=== PATIENT | female | born 1945 | race Caucasian/White ===

== ENCOUNTER 2018-02-10 18:12 | Emergency (ER) | payer MEDICARE, BC ==
[2018-02-10] MEDS ORDERED: Sodium Chloride 0.9% 10 ML Syringe FLUSH PRN (19:26)
[2018-02-10] MEDS ORDERED: methylPREDNISolone Sodium Succinate 125 MG/2 ML SDV IVPUSH ONE (20:05)
[2018-02-10 20:11] LABS: ANION GAP 11.7; CHLORIDE,CL 106 mmol/L (101-111); SODIUM,NA 139 mmol/L (135-145)
[2018-02-10 20:15] VITALS: BP 163/100
[2018-02-10] MEDS ORDERED: Doxycycline 100 MG Cap PO ONE (20:31)
--- NOTE | 2018-02-10 20:35 | EDM.PDOC ---
ED HPI GENERAL MEDICAL PROBLEM - General Chief Complaint: Respiratory Problem Stated Complaint: [id number] CHRONIC COUGHING CANT CATCH BREATH Time Seen by Provider: 02/10/18 19:17 Source of Information: Reports: Patient, Family History Limitations: Reports: No Limitations - History of Present Illness INITIAL COMMENTS - FREE TEXT/NARRATIVE: Pt to ER with c/o wheezing and coughing that began 3-4 days ago, progressively getting worse. States after she uses albuterol inhaler for the wheezing she has a coughing attack for 20-30 min. Unable to perform as much activity as normal. Patient states history of emphysema and COPD. States she is on O2 at home at 2L at all times. She also states she was on a course of steroids the end of December that helped her very much. Onset: Gradual - Related Data Allergies Allergy/AdvReac Type Severity Reaction Status Date / Time azithromycin Allergy Intermediate Hives Verified 12/07/17 07:15 varenicline tartrate Allergy Mild Nausea Verified 12/07/17 07:15 [From Chantix] budesonide [From Symbicort] Allergy Unknown Nausea Verified 12/07/17 07:15 cephalexin Allergy Unknown Other Verified 12/07/17 07:15 formoterol fumarate Allergy Unknown Nausea Verified 12/07/17 07:15 [From Symbicort] hydrochlorothiazide Allergy Unknown Other Verified 12/07/17 07:15 varenicline Allergy Unknown Other Verified 12/07/17 07:15 atorvastatin calcium Allergy Nausea Verified 12/07/17 07:15 [From Lipitor] codeine Allergy Dizziness Verified 12/07/17 07:15 levofloxacin [From Levaquin] Allergy Nausea Verified 12/07/17 07:15 nifedipine Allergy Dizziness Verified 12/07/17 07:15 Home Meds: Home Meds Fenofibrate [Fenoglide] 135 mg PO DAILY 08/01/14 [History] traZODone 50 mg PO BEDTIME 08/01/14 [History] Acetaminophen [Tylenol Extra Strength] 500 mg PO Q4HR PRN 11/13/15 [History] Benzonatate [Tessalon Perles] 100 mg PO Q6HR PRN 11/13/15 [History] Vit A/Vit C/Vit E/Zinc/Copper [Preservision] 1 each PO BID 11/13/15 [History] Albuterol [Proventil Neb Soln] 1 inh NEB Q4H PRN 12/06/17 [History] Aspirin [Ecotrin] 81 mg PO DAILY 12/06/17 [History] Latanoprost 1 drop EYEBOTH BEDTIME 12/06/17 [History] Metoprolol Succinate [Toprol XL 100mg] 100 mg PO DAILY 12/06/17 [History] Valsartan 320 mg PO DAILY 12/06/17 [History] Pantoprazole Sodium [Protonix] 40 mg PO DAILY 12/07/17 [History] Metoprolol Succinate 50 mg PO BEDTIME 02/10/18 [History] Umeclidinium Brm/Vilanterol Tr [Anoro Ellipta 62.5-25 MCG] 1 puff INH DAILY 12/24 [History] Past Medical History HEENT History: Reports: Impaired Vision Cardiovascular History: Reports: High Cholesterol, Hypertension Respiratory History: Reports: COPD Gastrointestinal History: Reports: None Genitourinary History: Reports: None AREA MANAGER History: Reports: Musculoskeletal History: Reports: Arthritis Neurological History: Reports: Migraines - Past Surgical History HEENT Surgical History: Reports: Tonsillectomy GI Surgical History: Reports: Cholecystectomy, Hernia Repair/Other Female Surgical History: Reports: Breast Biopsy Musculoskeletal Surgical History: Reports: Other (See Below) Other Musculoskeletal Surgeries/Procedures:: toe surgery Social & Family History - Family History Family Medical History: Noncontributory Cardiac: Reports: Heart Failure Respiratory: Reports: COPD Other Oncologic Family History: mother from lung cancer - Tobacco Use Smoking Status *Q: Former Smoker Years of Tobacco use: 53 Packs/Tins Daily: 0.7 Used Tobacco, but Quit: Yes Month/Year Tobacco Last Used: 11/2015 - Caffeine Use Caffeine Use: Reports: Soda, Tea - Recreational Drug Use Recreational Drug Use: No - Living Situation & Occupation Living situation: Reports: , with Spouse Occupation: Retired ED ROS GENERAL - Review of Systems Review Of Systems: ROS reveals no pertinent complaints other than HPI. ED EXAM, GENERAL - Physical Exam Exam: See Below Exam Limited By: No Limitations General Appearance: Alert, WD/WN, No Apparent Distress Eye Exam: Bilateral Eye: EOMI, Normal Inspection Ears: Normal External Exam, Hearing Grossly Normal Nose: Normal Inspection Throat/Mouth: Normal Inspection, Normal Voice, No Airway Compromise Head: Atraumatic, Normocephalic Neck: Normal Inspection, Supple, Non-Tender, Full Range of Motion Respiratory/Chest: No Respiratory Distress, No Accessory Muscle Use, Chest Non- Tender, Decreased Breath Sounds, Crackles (Bases bilaterally) Cardiovascular: Normal Peripheral Pulses, Regular Rate, Rhythm, No Edema, No Gallop, No JVD, No Murmur, No Rub Peripheral Pulses: 1+: Dorsalis Pedis (L), Dorsalis Pedis (R), 2+: Radial (L), Radial (R) GI/Abdominal: Normal Bowel Sounds, Soft, Non-Tender (Female) Exam: Deferred Rectal (Female) Exam: Deferred Back Exam: Normal Inspection, Full Range of Motion Extremities: Normal Inspection, Normal Range of Motion, Non-Tender, No Pedal Edema, Normal Capillary Refill Neurological: Alert, Oriented, CN II-XII Intact, Normal Cognition, Normal Gait, Normal Reflexes, No Motor/Sensory Deficits Psychiatric: Normal Affect, Normal Mood Skin Exam: Warm, Dry, Intact, Normal Color, No Rash Lymphatic: No Adenopathy Course - Vital Signs Last Recorded V/S: Last Vital Signs Temp 98.6 F 02/10/18 20:15 Pulse 71 02/10/18 20:15 Resp 24 H 02/10/18 20:15 BP 163/100 H 02/10/18 20:15 Pulse Ox 94 L 02/10/18 18:28 - Orders/Labs/Meds Orders: Active Orders 24 hr Category Date Time Status Peripheral IV Care [RC] . DIRECTED Care 02/10/18 19:27 Active Sodium Chloride 0.9% [Saline Flush] Med 02/10/18 19:26 Active 10 ml FLUSH ASDIRECTED PRN Peripheral IV Insertion Adult [OM.PC] Stat Oth 02/10/18 19:26 Ordered Medication Orders Sodium Chloride (Saline Flush) 10 ml FLUSH ASDIRECTED PRN PRN Reason: Keep Vein Open Last Admin: 02/10/18 19:35 Dose: 10 ml Labs: Laboratory Tests 02/10/18 02/10/18 Range/Units 19:37 19:37 WBC 7.9 (5.0-10.0) 10^3/uL RBC 4.69 (4.2-5.4) 10^6/uL Hgb 13.5 (12.0-16.0) g/dL Hct 42.2 (37.0-47.0) % MCV 90.0 (80-100) fL MCH 28.8 (27.0-34.0) pg MCHC 32.0 L (33.0-35.0) g/dL Plt Count 336 D (150-450) 10^3/uL Neut % (Auto) 56.9 (42.2-75.2) % Lymph % (Auto) 21.5 (20.5-50.1) % Warren % (Auto) 13.2 H (2-8) % Eos % (Auto) 7.1 H (1.0-3.0) % Baso % (Auto) 1.3 H (0.0-1.0) % Sodium 139 (135-145) mmol/L Potassium 3.7 (3.6-5.0) mmol/L Chloride 106 (101-111) mmol/L Carbon Dioxide 25.0 (21.0-31.0) mmol/L Anion Gap 11.7 BUN 16 (7-18) mg/dL Creatinine 1.0 (0.6-1.3) mg/dL Est Cr Clr Drug Dosing 39.04 mL/min Estimated GFR (MDRD) 54 BUN/Creatinine Ratio 16.00 Glucose TNP Calcium 9.6 (8.4-10.2) mg/dl Total Bilirubin 0.3 (0.2-1.0) mg/dL AST 27 (10-42) IU/L ALT 16 (10-60) IU/L Alkaline Phosphatase 41 L (42-121) IU/L Total Protein 7.0 (6.7-8.2) g/dl Albumin 4.0 (3.2-5.5) g/dl Globulin 3.0 Albumin/Globulin Ratio 1.33 Meds: Medications Generic Name Dose Route Start Last Admin Trade Name Freq PRN Reason Stop Dose Admin Sodium Chloride 10 ml 02/10/18 19:26 02/10/18 19:35 Saline Flush FLUSH 10 ml ASDIRECTED PRN Administration Keep Vein Open Discontinued Medications Generic Name Dose Route Start Last Admin Trade Name Freq PRN Reason Stop Dose Admin Doxycycline Hyclate 100 mg 02/10/18 20:31 02/10/18 20:42 Vibramycin PO 02/10/18 20:32 100 mg ONETIME ONE Administration Methylprednisolone Sodium Succinate 125 mg 02/10/18 20:05 02/10/18 20:16 Solu-Medrol IVPUSH 02/10/18 20:06 125 mg ONETIME ONE Administration Departure - Departure Time of Disposition: 20:30 Disposition: Home, Self-Care 01 Condition: Fair Clinical Impression: COPD with exacerbation - Discharge Information Instructions: Chronic Obstructive Pulmonary Disease Exacerbation, [id number] , Acute Bronchitis, Adult, [id number] Referrals: Michael Stacy MD [Primary Care Provider] - Forms: ED Department Discharge Additional Instructions: RX: Prednisone, Doxycycline Follow up with your primary care facility for recheck - My Orders Last 24 Hours: My Active Orders 02/10/18 19:26 Sodium Chloride 0.9% [Saline Flush] 10 ml FLUSH ASDIRECTED PRN Peripheral IV Insertion Adult [OM.PC] Stat 02/10/18 19:27 Peripheral IV Care [RC] . DIRECTED - Assessment/Plan Last 24 Hours: My Active Orders 02/10/18 19:26 Sodium Chloride 0.9% [Saline Flush] 10 ml FLUSH ASDIRECTED PRN Peripheral IV Insertion Adult [OM.PC] Stat 02/10/18 19:27 Peripheral IV Care [RC] . DIRECTED
== END 2018-02-10 20:53 | disposition home or self-care (01) ==
LOC: DL.ED 18:12
DX: J44.1 Chronic obstructive pulmonary disease with (acute) exacerbation (principal); I10 Essential (primary) hypertension; E78.00 Pure hypercholesterolemia, unspecified; M19.90 Unspecified osteoarthritis, unspecified site; Z79.899 Other long term (current) drug therapy; Z88.1 Allergy status to other antibiotic agents; Z87.891 Personal history of nicotine dependence; Z88.5 Allergy status to narcotic agent; Z88.8 Allergy status to other drugs, medicaments and biological substances
CPT/HCPCS: 36415; 71046; 80053; 85025; 96374; 99283; 99285; A9270; J2930; J7050

== ENCOUNTER 2021-04-23 07:28 | Day surgery (SDC) | payer MEDICARE, BC ==
[2021-04-23] MEDS ORDERED: Dexamethasone 4 MG/ML SDV IV ONE (07:29)
[2021-04-23] MEDS ORDERED: Midazolam 1 MG/ML 2 ML SDV IV ONE (07:29)
[2021-04-23] MEDS ORDERED: Sodium Chloride 0.9% 10 ML Syringe IV ONE (07:29)
[2021-04-23] MEDS ORDERED: Cataract Ophth Solution EYELF ONE (07:30)
[2021-04-23] MEDS ORDERED: Ondansetron 4 MG/2 ML SDV IVPUSH PRN (07:30)
[2021-04-23] MEDS ORDERED: Acetaminophen 325 MG Tab PO PRN (07:30)
[2021-04-23] MEDS ORDERED: Sodium Chloride 0.9% 10 ML Syringe FLUSH PRN (07:30)
[2021-04-23] MEDS ORDERED: Povidone-Iodine 5% Sterile Ophth Soln 30 ML Bottle EYELF ONE ×2 (07:30→08:46)
[2021-04-23] MEDS ORDERED: Tropicamide 1% Ophth Soln 15 ML Bottle EYELF ONE (07:30)
[2021-04-23] MEDS ORDERED: Moxifloxacin 0.5% Ophth Soln 3 ML Bottle EYELF ONE (07:30)
[2021-04-23] MEDS ORDERED: Timolol Maleate 0.5% Ophth Soln 5 ML Bottle EYELF ONE (07:30)
[2021-04-23] MEDS ORDERED: Proparacaine 0.5% Ophth Soln 15 ML Bottle EYELF ONE (07:30)
[2021-04-23] MEDS ORDERED: Acetaminophen/Codeine 300-30 MG Tab PO PRN (07:30)
[2021-04-23] MEDS ORDERED: Phenylephrine 10% Ophth Soln 5 ML Bot EYELF ONE (07:30)
[2021-04-23 07:53] VITALS: BP 141/85; PULSE 68
[2021-04-23] MEDS ORDERED: Tetracaine HCl/PF 0.5% 4 ML Bottle EYELF ONE (08:46)
[2021-04-23] MEDS ORDERED: Diclofenac Sodium 0.1% Ophth Soln 5 ML Bottle EYELF ONE (08:47)
[2021-04-23] MEDS ORDERED: Apraclonidine 0.5% Ophth Soln 5 ML Bot EYELF ONE (08:47)
[2021-04-23] MEDS ORDERED: Lidocaine 1% 30 ML SDV ONE (08:48)
[2021-04-23] MEDS ORDERED: Dexamethasone/Neomycin/Polymyxin B Ophth Oint 3.5 GM Tube EYELF ONE (08:48)
[2021-04-23] MEDS ORDERED: Balanced Salt Solution Ophth Irrig 500 ML Bottle IOCULAR ONE (08:49)
[2021-04-23] MEDS ORDERED: Chondroitin Sulfate/Hyaluronate Sodium Ophth Inj 0.5 ML Syringe IOCULAR ONE (08:49)
[2021-04-23] MEDS ORDERED: Chondroitin Sulfate/Hyaluronate Sodium Ophth Inj 0.75 ML Syringe EYELF ONE (08:49)
[2021-04-23] MEDS ORDERED: Vancomycin 500 MG SDV EYELF ONE (08:49)
[2021-04-23] MEDS ORDERED: Acetylcholine 20 MG/2 ML Intraocular Inj Kit EYELF ONE (08:50)
--- NOTE | 2021-04-23 13:47 | OR ---
DATE: 04/23/2021 PREOPERATIVE DIAGNOSIS: Visually significant mixed cataract, left eye. POSTOPERATIVE DIAGNOSIS: Visually significant mixed cataract, left eye. PROCEDURE: Extracapsular cataract extraction with intraocular lens implant, left eye. ANESTHESIA: Topical/local MAC. COMPLICATIONS: None. INDICATION: Ms. Diaz was seen in the clinic with complaints of blurred vision. She has difficulty seeing books, magazines, newspapers, phone books, difficulty with bright lights and glare, difficulty seeing street signs. Examination revealed visually significant mixed cataract. She has primary open- angle glaucoma. She also has evidence of vortex keratopathy. I explained options, offered cataract surgery, and I explained risks including the potential for infection, retinal detachment, loss of vision, need for additional surgery amongst others. I recommended a monofocal implant. I offered a MIGS procedure pending intraoperative evaluation. She voiced understanding with respect to risks and options and wished to proceed. OPERATIVE DESCRIPTION: After informed consent was obtained and the risks, benefits, and alternatives were explained, the patient was brought to the operative suite and topical anesthesia was administered. The patient was then prepped and draped in the sterile fashion and attention was placed on the left eye. A sterile lid speculum was placed into the left eye to allow operative exposure. A full-thickness paracentesis was made in the temporal portion of the operative eye. Preservative-free lidocaine 0.1 mL was injected into the anterior chamber followed by viscoelastic. A full-thickness corneal incision was then made into the anterior chamber. A bent needle cystotome was used to create a small dior in the anterior capsule. The capsulorrhexis forceps was then used to create a 360-degree curvilinear capsulorrhexis. The nucleus was then removed using a phacoemulsification handpiece and the remaining cortical material was then removed with irrigation and aspiration handpiece. Following removal of the cortical material, the capsular bag was then inspected and noted to be free of any holes or tears. Viscoelastic was then injected into the capsular bag and the intraocular lens was inserted into the capsular bag. The viscoelastic material was then removed from both the anterior and posterior chambers and from behind the IOL. The lens and capsular bag were then reinspected. The IOL was well centered and the capsular bag intact. The wound and paracentesis sites were inspected and hydrated with balanced saline solution. Both were found to be self- sealing. The intraocular pressure was assessed digitally and found to be within normal range. A good red reflex was noted at the completion of the procedure. No complications occurred during the operation. At the completion of the procedure, Maxitrol, Voltaren, and Iopidine drops were placed into the operative eye. A sterile eye shield was placed over the operative eye and the patient was transported to the postoperative recovery area having tolerated the procedure well. Postoperative instructions were given along with a postoperative appointment. The patient was advised to call with any questions or concerns. We used gonioprism to assess the view for possible minimally invasive glaucoma procedure. Because of the vortex keratopathy, the view of the anterior chamber angle was inadequate and I did not place an iStent. [facility] /[id number]
== END 2021-04-23 10:04 | disposition home or self-care (01) ==
LOC: DL.SDS 07:28
PROVIDERS: ATTEND Ophthalmology
DX: H26.8 Other specified cataract (principal); I12.9 Hypertensive chronic kidney disease with stage 1 through stage 4 chronic kidney disease, or unspecified chronic kidney disease; N18.9 Chronic kidney disease, unspecified; J44.9 Chronic obstructive pulmonary disease, unspecified; K21.9 Gastro-esophageal reflux disease without esophagitis; Z98.890 Other specified postprocedural states; Z87.891 Personal history of nicotine dependence; Z79.899 Other long term (current) drug therapy; Z88.8 Allergy status to other drugs, medicaments and biological substances; Z88.5 Allergy status to narcotic agent
CPT/HCPCS: 00142; A9270-GY; J1100; J2250; J3370; V2632

== ENCOUNTER 2021-04-30 06:43 | Day surgery (SDC) | payer MEDICARE, BC ==
[2021-04-30] MEDS ORDERED: Midazolam 1 MG/ML 2 ML SDV IV ONE (06:44)
[2021-04-30] MEDS ORDERED: Sodium Chloride 0.9% 10 ML Syringe IV ONE (06:44)
[2021-04-30] MEDS ORDERED: Dexamethasone 4 MG/ML SDV IV ONE (06:44)
[2021-04-30] MEDS ORDERED: Acetaminophen 325 MG Tab PO PRN (07:00)
[2021-04-30] MEDS ORDERED: Proparacaine 0.5% Ophth Soln 15 ML Bottle EYERT ONE (07:00)
[2021-04-30] MEDS ORDERED: Moxifloxacin 0.5% Ophth Soln 3 ML Bottle EYERT ONE (07:00)
[2021-04-30] MEDS ORDERED: Phenylephrine 10% Ophth Soln 5 ML Bot EYERT ONE (07:00)
[2021-04-30] MEDS ORDERED: Sodium Chloride 0.9% 10 ML Syringe FLUSH PRN (07:00)
[2021-04-30] MEDS ORDERED: Acetaminophen/Codeine 300-30 MG Tab PO PRN (07:00)
[2021-04-30] MEDS ORDERED: Ondansetron 4 MG/2 ML SDV IVPUSH PRN (07:00)
[2021-04-30] MEDS ORDERED: Povidone-Iodine 5% Sterile Ophth Soln 30 ML Bottle EYERT ONE ×2 (07:00→08:23)
[2021-04-30] MEDS ORDERED: Timolol Maleate 0.5% Ophth Soln 5 ML Bottle EYERT ONE (07:00)
[2021-04-30] MEDS ORDERED: Cataract Ophth Solution EYERT ONE (07:00)
[2021-04-30] MEDS ORDERED: Tropicamide 1% Ophth Soln 15 ML Bottle EYERT ONE (07:00)
[2021-04-30] MEDS ORDERED: Lidocaine 1% 30 ML SDV ONE (08:22)
[2021-04-30] MEDS ORDERED: Tetracaine HCl/PF 0.5% 4 ML Bottle EYERT ONE (08:22)
[2021-04-30] MEDS ORDERED: Dexamethasone/Neomycin/Polymyxin B Ophth Oint 3.5 GM Tube EYERT ONE (08:23)
[2021-04-30] MEDS ORDERED: Apraclonidine 0.5% Ophth Soln 5 ML Bot EYERT ONE (08:23)
[2021-04-30] MEDS ORDERED: Diclofenac Sodium 0.1% Ophth Soln 5 ML Bottle EYERT ONE (08:23)
[2021-04-30] MEDS ORDERED: Chondroitin Sulfate/Hyaluronate Sodium Ophth Inj 0.75 ML Syringe EYERT ONE (08:23)
[2021-04-30] MEDS ORDERED: Balanced Salt Solution Ophth Irrig 500 ML Bottle IOCULAR ONE (08:23)
[2021-04-30] MEDS ORDERED: Vancomycin 500 MG SDV EYERT ONE (08:24)
[2021-04-30] MEDS ORDERED: Acetylcholine 20 MG/2 ML Intraocular Inj Kit EYERT ONE (08:28)
[2021-04-30] MEDS ORDERED: Chondroitin Sulfate/Hyaluronate Sodium Ophth Inj 0.5 ML Syringe IOCULAR ONE (08:28)
[2021-04-30 10:20] VITALS: BP 130/84; PULSE 58
--- NOTE | 2021-04-30 13:47 | OR ---
DATE: 04/30/2021 PREOPERATIVE DIAGNOSES: 1. Visually significant mixed cataract, right eye. 2. Primary open angle glaucoma, right eye. POSTOPERATIVE DIAGNOSES: 1. Visually significant mixed cataract, right eye. 2. Primary open angle glaucoma, right eye. PROCEDURES: 1. Extracapsular cataract extraction with intraocular lens implant. 2. Placement of iStent for glaucoma control. SURGEON: Yasmani Pelaez MD ANESTHESIA: Local MAC. INDICATION: Ms. Diaz was seen in the clinic. She has complained of blurred vision, difficulty seeing books, magazines, newspapers, phone books, difficulty driving, difficulty with bright lights and glare, difficulty with starbursts. Examination revealed mixed cataract and moderate primary open-angle glaucoma. I explained options, offered cataract surgery, and I explained risks including the potential for infection and retinal detachment, loss of vision, need for additional surgery, and risks associated with anesthesia. She did see her regular men's golf coach, Dr. Galeano. Dr. Galeano was not able to improve her vision with a change in glasses. We discussed implant options and I recommended a monofocal implant. I recommended surgery with the iStent. OPERATIVE DESCRIPTION: The patient was prepped and draped in a sterile fashion and topical anesthesia was applied. Attention was placed on the operative eye. A sterile lid speculum was placed to allow operative exposure. Paracentesis was made temporal. Intracameral lidocaine was administered. Viscoelastic was injected. A full-thickness corneal incision was made using the trapezoidal blade. Bent needle cystotome was then used to make a small dior in the anterior capsule and a 360-degree curvilinear capsulorrhexis was created. Nucleus was then hydrodissected and hydrodelinated using balanced saline solution. Nucleus was then decompressed centrally and rotated and noted to be free of adhesions. Nucleus was then removed using the phacoemulsification handpiece. Additional viscoelastic was then injected into the capsular bag and the intraocular lens was inserted into the capsular bag. The iStent portion of the procedure was then performed. Following removal of the nucleus and cortex, the irrigation and aspiration handpiece was inserted to remove viscoelastic from the posterior surface of the IOL. Additional viscoelastic was then inserted into the anterior chamber angle directly opposite the corneal incision. Miochol was injected into the nasal iris to promote pupillary contraction. The patient's head was then rotated 35 degrees away from the initial position. The operating microscope was also rotated 35 degrees to achieve the proper orientation. The gonioprism was then placed onto the eye. The iStent was then inserted into the anterior chamber with the right hand and the stent was introduced into the pigmented trabecular meshwork. The stent was advanced beneath the trabecular meshwork until approximately two-thirds of the body was covered and then the stent was released from the insertion device. The stent was then tapped into its final resting position using the insertion device. The device was then reinspected to ensure that it was securely in position. The viscoelastic was aspirated from the anterior chamber. Wound and paracentesis sites were hydrated using balanced saline solution. Vancomycin 0.1 mL was injected into the anterior chamber. Intraocular lens was inspected and noted to be clear and well centered. Postoperative drops were placed and a sterile eye patch and shield were placed over the operative eye. The patient was then transported to the postoperative recovery area having tolerated the procedure well. No complications occurred. [facility] /[id number]
== END 2021-04-30 09:35 | disposition home or self-care (01) ==
LOC: DL.SDS 06:43
PROVIDERS: ATTEND Ophthalmology
DX: H40.1112 Primary open-angle glaucoma, right eye, moderate stage (principal); H26.8 Other specified cataract; E78.5 Hyperlipidemia, unspecified; K21.9 Gastro-esophageal reflux disease without esophagitis; J44.9 Chronic obstructive pulmonary disease, unspecified; F17.210 Nicotine dependence, cigarettes, uncomplicated; N18.30 Chronic kidney disease, stage 3 unspecified; Z79.899 Other long term (current) drug therapy
CPT/HCPCS: 0191T; 66984; A9270; C1783; J1100; J2250; J3370; V2632; 00142

== ENCOUNTER 2023-11-10 18:22 | Emergency (ER) | payer MEDICARE, BC ==
[2023-11-10] MEDS: Dexamethasone 4 MG/ML SDV IVPUSH ONE (18:48)
[2023-11-10] MEDS: Albuterol/Ipratropium 3.0-0.5 MG/3 ML Neb Soln NEB ONE (18:48)
[2023-11-10] MEDS: Magnesium Sulfate/Water 2 GM in Premix Bag 1 BAG IV ONE (18:48)
[2023-11-10 19:02] VITALS: BP 138/79; PULSE 82
== END 2023-11-10 19:38 | disposition home or self-care (01) ==
LOC: DL.ED 18:22
DX: J44.1 Chronic obstructive pulmonary disease with (acute) exacerbation (principal); I12.9 Hypertensive chronic kidney disease with stage 1 through stage 4 chronic kidney disease, or unspecified chronic kidney disease; N18.9 Chronic kidney disease, unspecified; E78.00 Pure hypercholesterolemia, unspecified; K21.9 Gastro-esophageal reflux disease without esophagitis; E66.9 Obesity, unspecified; Z88.1 Allergy status to other antibiotic agents; Z88.8 Allergy status to other drugs, medicaments and biological substances; Z88.5 Allergy status to narcotic agent; Z91.018 Allergy to other foods; Z79.899 Other long term (current) drug therapy; Z79.82 Long term (current) use of aspirin; Z79.51 Long term (current) use of inhaled steroids; Z86.19 Personal history of other infectious and parasitic diseases; Z90.49 Acquired absence of other specified parts of digestive tract; Z68.25 Body mass index [BMI] 25.0-25.9, adult
CPT/HCPCS: 96365; 96375; 99284; 99284-25; J1100; J3475; J7620-GY

== ENCOUNTER 2024-02-25 15:46 | Inpatient (IN) | payer MEDICARE, BC ==
[2024-02-25 16:27] LABS: O2 DELIVERY DEVICE NASAL CANNULA
[2024-02-25 16:36] LABS: BASOPHILS PERCENT AUTO 0.9 % (0.0-1.0); EOSINOPHILS PERCENT AUTO 9.8 % (1.0-3.0); HEMATOCRIT 39.3 % (37.0-47.0); HEMOGLOBIN 12.4 g/dL (12.0-16.0); LYMPHOCYTES PERCENT AUTO 17.6 % (20.5-50.1); MEAN CORPUSCULAR HGB CONC 31.6 g/dL (33.0-35.0); MEAN CORPUSCULAR VOLUME 91.8 fL (80-100); MONOCYTES PERCENT AUTO 10.8 % (2-8); NEUTROPHILS PERCENT AUTO 60.9 % (42.2-75.2); PLATELET COUNT,PLT 262 10^3/uL (150-450); RED BLOOD CELL COUNT 4.28 10^6/uL (4.2-5.4); WHITE BLOOD CELL COUNT,WBC 6.8 10^3/uL (5.0-10.0)
[2024-02-25 16:37] LABS: PH,VENOUS 7.34 (7.31-7.41)
[2024-02-25 16:38] LABS: BICARBONATE,VENOUS 27 mmol/l (19-25); O2 SATURATION VENOUS 59.6 % (60-80); PCO2 VENOUS 51 mmHg (41-51); PO2 VENOUS 37 mmHg (35-42)
[2024-02-25 16:39] LABS: BASE EXCESS VENOUS 0.6 mmol/l ((-2)-(+3))
[2024-02-25 16:49] LABS: ALBUMIN 3.4 g/dL (3.4-5.0); ANION GAP 9.2 mEq/L (7-13); BILIRUBIN TOTAL 0.3 mg/dL (0.2-1.0); CALCIUM 8.9 mg/dL (8.5-10.1); CREATININE 0.81 mg/dL (0.55-1.02); EST CRCL DRUG DOSING (CG) 43.81 mL/min; MAGNESIUM 1.9 mg/dL (1.8-2.4); POTASSIUM,K 4.2 mmol/L (3.5-5.1); PROTEIN TOTAL,TP 6.7 g/dL (6.4-8.2)
[2024-02-25] MEDS: Albuterol 0.083% 2.5 MG/3 ML Neb Soln NEB ONE (16:58)
[2024-02-25] MEDS: methylPREDNISolone Sodium Succinate 125 MG/2 ML SDV IVPUSH ONE (17:24)
[2024-02-25] MEDS ORDERED: Albuterol/Ipratropium 3.0-0.5 MG/3 ML Neb Soln NEB PRN (17:48)
[2024-02-25] MEDS ORDERED: Bisacodyl 5 MG Tab PO PRN (17:48)
[2024-02-25] MEDS ORDERED: Magnesium Hydroxide 400 MG/5 ML Susp 30 ML Cup PO PRN (17:48)
[2024-02-25] MEDS ORDERED: Sennosides/Docusate Sodium 50-8.6 MG Tab PO PRN (17:48)
[2024-02-25] MEDS ORDERED: Promethazine 25 MG/ML SDV IM PRN (17:48)
[2024-02-25] MEDS ORDERED: Polyethylene Glycol 3350 Powder 17 GM Packet PO PRN (17:48)
[2024-02-25] MEDS ORDERED: Ondansetron 4 MG/2 ML SDV IVPUSH PRN (17:48)
[2024-02-25] MEDS ORDERED: traMADol 50 MG Tab PO PRN (17:51)
[2024-02-25] MEDS ORDERED: Ketorolac 30 MG/ML SDV IVPUSH PRN (17:52)
[2024-02-25] MEDS ORDERED: hydrALAZINE 20 MG/ML SDV IVPUSH PRN (17:55)
[2024-02-25] MEDS ORDERED: Metoprolol Tartrate 5 MG/5 ML SDV IVPUSH PRN (17:55)
[2024-02-25] MEDS ORDERED: Magnesium Sulfate/D5W 1 GM/100 ML BAG IV ONE (17:55)
[2024-02-25] MEDS ORDERED: 50% Dextrose in Water 50 ML Syringe IVPUSH PRN (17:56)
[2024-02-25] MEDS ORDERED: Glucagon,Human Recombinant 1 MG Vial IM PRN (17:56)
[2024-02-25] MEDS ORDERED: guaiFENesin/Dextromethorphan 100-10 MG/5 ML Soln 5 ML Cup PO PRN (18:11)
[2024-02-25] MEDS: Magnesium Sulfate/D5W 1 GM IV ONE (18:43)
[2024-02-25] MEDS: Famotidine 20 MG/2 ML SDV IVPUSH ONE (20:25)
[2024-02-25] MEDS: guaiFENesin 600 MG Tab.ER PO SCH (20:25)
[2024-02-25] MEDS: Saccharomyces Boulardii (Probiotic) 250 MG Cap PO SCH (20:25)
[2024-02-25] MEDS: Loratadine 10 MG Tab PO ONE (20:26)
[2024-02-25] MEDS: traZODone 50 MG Tab PO SCH (20:26)
[2024-02-25] MEDS: Amoxicillin/Clavulanate K 875-125 MG Tab PO ONE (20:27)
[2024-02-25] MEDS: Metoprolol Succinate 50 MG Tab.ER PO SCH (21:20)
[2024-02-25] MEDS: Melatonin 3 MG Tab PO PRN (21:21)
[2024-02-25] MEDS: Latanoprost 0.005% Ophth Soln 2.5 ML Bottle EYEBOTH SCH (21:31)
[2024-02-25] MEDS: Lutein/Minerals/Vit A,C & E Tab PO SCH (21:32)
[2024-02-25] MEDS: Albuterol 0.083% 2.5 MG/3 ML Neb Soln INH SCH (21:34)
[2024-02-25] MEDS: methylPREDNISolone Sodium Succinate 40 MG/1 ML SDV IVPUSH SCH (23:57)
[2024-02-26 05:41] LABS: BASOPHILS PERCENT AUTO 0.2 % (0.0-1.0); HEMATOCRIT 38.4 % (37.0-47.0); HEMOGLOBIN 12.3 g/dL (12.0-16.0); LYMPHOCYTES PERCENT AUTO 5.5 % (20.5-50.1); MEAN CORPUSCULAR HEMOGLOBIN 29.1 pg (27.0-34.0); MEAN CORPUSCULAR VOLUME 90.8 fL (80-100); MONOCYTES PERCENT AUTO 1.1 % (2-8); NEUTROPHILS PERCENT AUTO 93.2 % (42.2-75.2); PLATELET COUNT,PLT 218 10^3/uL (150-450); RED BLOOD CELL COUNT 4.23 10^6/uL (4.2-5.4); WHITE BLOOD CELL COUNT,WBC 4.7 10^3/uL (5.0-10.0)
[2024-02-26 06:05] LABS: ALANINE AMINOTRANSFERASE,ALT 27 U/L (14-59); ALBUMIN 3.1 g/dL (3.4-5.0); ALKALINE PHOSPHATASE 49 U/L (46-116); ANION GAP 12.1 mEq/L (7-13); ASPARTATE AMNIOTRANSFERASE,AST 31 U/L (15-37); BILIRUBIN TOTAL 0.4 mg/dL (0.2-1.0); BLOOD UREA NITROGEN,BUN 14 mg/dL (7-18); BUN/CREATININE RATIO 19.4 (No establ ref range); CALCIUM 8.9 mg/dL (8.5-10.1); CARBON DIOXIDE,CO2 29 mmol/L (21-32); CHLORIDE,CL 105 mmol/L (98-107); CREATININE 0.72 mg/dL (0.55-1.02); EST CRCL DRUG DOSING (CG) 49.29 mL/min; GLUCOSE RANDOM 139 mg/dL (70-99); MAGNESIUM 1.9 mg/dL (1.8-2.4); POTASSIUM,K 4.1 mmol/L (3.5-5.1); PROTEIN TOTAL,TP 6.5 g/dL (6.4-8.2); SODIUM,NA 142 mmol/L (136-145)
[2024-02-26 06:08] LABS: A/G RATIO 0.91; C-REACTIVE PROTEIN < 0.50 ng/dL (<=0.50); ESTIMATED GFR 84 mL/min (>=60)
[2024-02-26] MEDS: Insulin Lispro 100 Units/ML 3 ML Vial SUBCUT SCH (07:47)
[2024-02-26] MEDS: Amoxicillin/Clavulanate K 875-125 MG Tab PO SCH (08:35)
[2024-02-26] MEDS: Losartan 50 MG Tab PO SCH (08:36)
[2024-02-26] MEDS: Metoprolol Succinate 50 MG Tab.ER PO SCH (08:38)
[2024-02-26] MEDS ORDERED: Metoprolol Succinate 50 MG Tab.ER PO SCH (09:00)
[2024-02-26] MEDS: amLODIPine 5 MG Tab PO SCH ×2 (09:06→10:59)
[2024-02-26] MEDS: Fenofibrate Nanocrystallized 145 MG Tab PO SCH ×2 (09:07→11:01)
[2024-02-26] MEDS: Budesonide 0.5 MG/2 ML Neb Susp INH SCH ×2 (09:07→11:00)
[2024-02-26] MEDS: Famotidine 20 MG Tab PO SCH (11:06)
[2024-02-26] MEDS: guaiFENesin 600 MG Tab.ER PO SCH (20:36)
[2024-02-26] MEDS: Acetaminophen 325 MG Tab PO PRN (20:36)
[2024-02-26] MEDS: Loratadine 10 MG Tab PO SCH (20:37)
[2024-02-27 06:26] LABS: BASOPHILS PERCENT AUTO 0.2 % (0.0-1.0); HEMATOCRIT 37.7 % (37.0-47.0); HEMOGLOBIN 12.2 g/dL (12.0-16.0); LYMPHOCYTES PERCENT AUTO 3.6 % (20.5-50.1); MEAN CORPUSCULAR HEMOGLOBIN 29.2 pg (27.0-34.0); MEAN CORPUSCULAR HGB CONC 32.4 g/dL (33.0-35.0); MEAN CORPUSCULAR VOLUME 90.2 fL (80-100); MONOCYTES PERCENT AUTO 3.7 % (2-8); NEUTROPHILS PERCENT AUTO 92.5 % (42.2-75.2); PLATELET COUNT,PLT 236 10^3/uL (150-450); RED BLOOD CELL COUNT 4.18 10^6/uL (4.2-5.4); WHITE BLOOD CELL COUNT,WBC 11.8 10^3/uL (5.0-10.0)
[2024-02-27 06:48] LABS: ALANINE AMINOTRANSFERASE,ALT 28 U/L (14-59); ALBUMIN 3.1 g/dL (3.4-5.0); ALKALINE PHOSPHATASE 49 U/L (46-116); ANION GAP 11.9 mEq/L (7-13); ASPARTATE AMNIOTRANSFERASE,AST 32 U/L (15-37); BILIRUBIN TOTAL 0.5 mg/dL (0.2-1.0); BLOOD UREA NITROGEN,BUN 14 mg/dL (7-18); BUN/CREATININE RATIO 19.2 (No establ ref range); CALCIUM 8.9 mg/dL (8.5-10.1); CARBON DIOXIDE,CO2 28 mmol/L (21-32); CHLORIDE,CL 105 mmol/L (98-107); CREATININE 0.73 mg/dL (0.55-1.02); EST CRCL DRUG DOSING (CG) 48.61 mL/min; GLUCOSE RANDOM 132 mg/dL (70-99); MAGNESIUM 1.8 mg/dL (1.8-2.4); POTASSIUM,K 3.9 mmol/L (3.5-5.1); PROTEIN TOTAL,TP 6.4 g/dL (6.4-8.2); SODIUM,NA 141 mmol/L (136-145)
[2024-02-27 06:59] LABS: A/G RATIO 0.94; C-REACTIVE PROTEIN < 0.50 ng/dL (<=0.50); ESTIMATED GFR 83 mL/min (>=60)
[2024-02-27] MEDS: Gabapentin 300 MG Cap PO SCH (20:49)
[2024-02-28 06:39] LABS: BASOPHILS PERCENT AUTO 0.2 % (0.0-1.0); HEMATOCRIT 39.2 % (37.0-47.0); HEMOGLOBIN 12.4 g/dL (12.0-16.0); LYMPHOCYTES PERCENT AUTO 4.2 % (20.5-50.1); MEAN CORPUSCULAR HEMOGLOBIN 28.6 pg (27.0-34.0); MEAN CORPUSCULAR HGB CONC 31.6 g/dL (33.0-35.0); MEAN CORPUSCULAR VOLUME 90.5 fL (80-100); MONOCYTES PERCENT AUTO 2.9 % (2-8); NEUTROPHILS PERCENT AUTO 92.7 % (42.2-75.2); PLATELET COUNT,PLT 244 10^3/uL (150-450); RED BLOOD CELL COUNT 4.33 10^6/uL (4.2-5.4); WHITE BLOOD CELL COUNT,WBC 10.4 10^3/uL (5.0-10.0)
[2024-02-28 07:01] LABS: ALANINE AMINOTRANSFERASE,ALT 29 U/L (14-59); ALBUMIN 3.1 g/dL (3.4-5.0); ALKALINE PHOSPHATASE 49 U/L (46-116); ANION GAP 3.5 mEq/L (7-13); ASPARTATE AMNIOTRANSFERASE,AST 28 U/L (15-37); BILIRUBIN TOTAL 0.5 mg/dL (0.2-1.0); BLOOD UREA NITROGEN,BUN 15 mg/dL (7-18); BUN/CREATININE RATIO 20.8 (No establ ref range); CALCIUM 8.8 mg/dL (8.5-10.1); CARBON DIOXIDE,CO2 33 mmol/L (21-32); CHLORIDE,CL 102 mmol/L (98-107); CREATININE 0.72 mg/dL (0.55-1.02); EST CRCL DRUG DOSING (CG) 49.29 mL/min; GLUCOSE RANDOM 121 mg/dL (70-99); MAGNESIUM 1.9 mg/dL (1.8-2.4); POTASSIUM,K 3.5 mmol/L (3.5-5.1); PROTEIN TOTAL,TP 6.4 g/dL (6.4-8.2); SODIUM,NA 135 mmol/L (136-145)
[2024-02-28 07:03] LABS: A/G RATIO 0.94; ESTIMATED GFR 84 mL/min (>=60)
[2024-02-28 07:04] LABS: C-REACTIVE PROTEIN < 0.50 ng/dL (<=0.50)
[2024-02-28 07:55] VITALS: PULSE 64
[2024-02-28 09:00] VITALS: BP 180/84
== END 2024-02-28 10:15 | disposition home or self-care (01) | DRG 189 ==
LOC: DL.ED 15:46 → DL.MS 17:35 → OBSVTOIN 02-27 18:39
PROVIDERS: ADMIT Internal Medicine; ATTEND Internal Medicine
DX: J96.21 Acute and chronic respiratory failure with hypoxia (principal); J44.1 Chronic obstructive pulmonary disease with (acute) exacerbation; N18.9 Chronic kidney disease, unspecified; I12.9 Hypertensive chronic kidney disease with stage 1 through stage 4 chronic kidney disease, or unspecified chronic kidney disease; N18.30 Chronic kidney disease, stage 3 unspecified; K21.9 Gastro-esophageal reflux disease without esophagitis; M19.90 Unspecified osteoarthritis, unspecified site; E78.00 Pure hypercholesterolemia, unspecified; E66.9 Obesity, unspecified; F32.A Depression, unspecified; G43.909 Migraine, unspecified, not intractable, without status migrainosus; G47.00 Insomnia, unspecified; J98.4 Other disorders of lung; R73.9 Hyperglycemia, unspecified; Z88.5 Allergy status to narcotic agent; Z88.1 Allergy status to other antibiotic agents; Z88.0 Allergy status to penicillin; Z88.8 Allergy status to other drugs, medicaments and biological substances; Z98.49 Cataract extraction status, unspecified eye; Z90.89 Acquired absence of other organs; Z90.49 Acquired absence of other specified parts of digestive tract; Z87.891 Personal history of nicotine dependence; Z79.899 Other long term (current) drug therapy; Z98.890 Other specified postprocedural states; Z99.89 Dependence on other enabling machines and devices
CPT/HCPCS: 36415 ×3; 71045; 80053 ×3; 82803; 82947 ×7; 83735 ×3; 84484 ×2; 85025 ×3; 86140 ×2; 87070; 87205; 87804 ×2; 93005; 96374; 99285; A9270 ×36; J2919 ×7; J3475; J3490; U0002; 87077; 87186; 94640; 96365; 96375; 96376; G0378; J7613-GY

== ENCOUNTER 2025-06-03 19:27 | Inpatient (IN) | payer MEDICARE, BC ==
[2025-06-03] MEDS ORDERED: Sodium Chloride 0.9% 10 ML Syringe FLUSH PRN (19:42)
[2025-06-03] MEDS: Ketorolac 30 MG/ML SDV IVPUSH ONE (20:00)
[2025-06-03 20:29] LABS: BASOPHILS PERCENT AUTO 0.2 % (0.0-1.0); EOSINOPHILS PERCENT AUTO 1.0 % (1.0-3.0); LYMPHOCYTES PERCENT AUTO 7.1 % (20.5-50.1); MONOCYTES PERCENT AUTO 4.5 % (2-8); NEUTROPHILS PERCENT AUTO 87.2 % (42.2-75.2); PLATELET COUNT,PLT 264 10^3/uL (150-450); RED BLOOD CELL COUNT 4.23 10^6/uL (4.2-5.4); WHITE BLOOD CELL COUNT,WBC 13.0 10^3/uL (5.0-10.0)
[2025-06-03 20:45] LABS: A/G RATIO 1.2; ALANINE AMINOTRANSFERASE,ALT 17 U/L (14-59); ASPARTATE AMNIOTRANSFERASE,AST 16 U/L (15-37); BILIRUBIN TOTAL 0.3 mg/dL (0.2-1.0); BLOOD UREA NITROGEN,BUN 22 mg/dL (7-18); CARBON DIOXIDE,CO2 31 mmol/L (21-32); CHLORIDE,CL 101 mmol/L (98-107); CREATININE 1.17 mg/dL (0.55-1.02); EST CRCL DRUG DOSING (CG) 29.83 mL/min; GLUCOSE RANDOM 122 mg/dL (70-99); POTASSIUM,K 4.4 mmol/L (3.5-5.1); PROTEIN TOTAL,TP 6.5 g/dL (6.4-8.2); SODIUM,NA 140 mmol/L (136-145)
[2025-06-03 20:46] LABS: LACTIC ACID 1.8 mmol/L (0.4-2.0)
[2025-06-03 20:52] LABS: ESTIMATED GFR 47 mL/min (>=60)
[2025-06-03 21:05] LABS: B-TYPE NATRIURETIC PEPTIDE,BNP 124 pg/ml (0-100)
[2025-06-03] MEDS ORDERED: hydrALAZINE 20 MG/ML SDV IVPUSH PRN (22:01)
[2025-06-03] MEDS ORDERED: Metoprolol Tartrate 5 MG/5 ML SDV IVPUSH PRN (22:01)
[2025-06-03] MEDS ORDERED: Ondansetron 4 MG/2 ML SDV IVPUSH PRN (22:03)
[2025-06-03] MEDS ORDERED: Magnesium Hydroxide 400 MG/5 ML Susp 30 ML Cup PO PRN (22:03)
[2025-06-03] MEDS ORDERED: Sennosides/Docusate Sodium 50-8.6 MG Tab PO PRN (22:03)
[2025-06-03] MEDS ORDERED: Pharmacy Consult Order SCH (22:15)
[2025-06-03] MEDS: Dexamethasone 4 MG/ML SDV IVPUSH ONE (23:58)
[2025-06-04] MEDS: Ampicillin/Sulbactam Na 1.5 GM in Sodium Chloride 0.9% 100 ML IV SCH ×2 (00:19→05:29)
[2025-06-04 06:40] LABS: BASOPHILS PERCENT AUTO 0.1 % (0.0-1.0); EOSINOPHILS PERCENT AUTO 0.0 % (1.0-3.0); LYMPHOCYTES PERCENT AUTO 1.8 % (20.5-50.1); MONOCYTES PERCENT AUTO 3.7 % (2-8); NEUTROPHILS PERCENT AUTO 94.4 % (42.2-75.2); PLATELET COUNT,PLT 204 10^3/uL (150-450); RED BLOOD CELL COUNT 3.89 10^6/uL (4.2-5.4); WHITE BLOOD CELL COUNT,WBC 18.0 10^3/uL (5.0-10.0)
[2025-06-04 07:11] LABS: ALANINE AMINOTRANSFERASE,ALT 33.0 U/L (14-59); ASPARTATE AMNIOTRANSFERASE,AST 38.0 U/L (15-37); BILIRUBIN TOTAL 0.7 mg/dL (0.2-1.0); BLOOD UREA NITROGEN,BUN 23.0 mg/dL (7-18); CARBON DIOXIDE,CO2 27.0 mmol/L (21-32); CHLORIDE,CL 101.0 mmol/L (98-107); CREATININE 1.16 mg/dL (0.55-1.02); EST CRCL DRUG DOSING (CG) 30.08 mL/min; GLUCOSE RANDOM 140.0 mg/dL (70-99); POTASSIUM,K 4.3 mmol/L (3.5-5.1); PROTEIN TOTAL,TP 6.0 g/dL (6.4-8.2); SODIUM,NA 139.0 mmol/L (136-145)
[2025-06-04 07:14] LABS: A/G RATIO 1.07; ESTIMATED GFR 47.0 mL/min (>=60)
[2025-06-04 08:04] LABS: CORONAVIRUS COVID-19 NAA NEGATIVE (NEGATIVE); INFLUENZA A NAA NEGATIVE (NEGATIVE); INFLUENZA B NAA NEGATIVE (NEGATIVE); RESPIRATORY SYNCYTIAL VIR NAA NEGATIVE (NEGATIVE)
[2025-06-05] MEDS ORDERED: Formoterol/Mometasone 200-5 MCG 13 GM Inhaler INH SCH (06:00)
[2025-06-05] MEDS ORDERED: Tiotropium Bromide 4 GM Inhalation Spray (2.5mcg/1 dose; 10 doses) INH SCH (06:00)
[2025-06-05 06:26] LABS: BASOPHILS PERCENT AUTO 0.2 % (0.0-1.0); EOSINOPHILS PERCENT AUTO 0.0 % (1.0-3.0); LYMPHOCYTES PERCENT AUTO 4.1 % (20.5-50.1); MONOCYTES PERCENT AUTO 4.7 % (2-8); NEUTROPHILS PERCENT AUTO 91.0 % (42.2-75.2); PLATELET COUNT,PLT 196 10^3/uL (150-450); RED BLOOD CELL COUNT 3.51 10^6/uL (4.2-5.4); WHITE BLOOD CELL COUNT,WBC 13.2 10^3/uL (5.0-10.0)
[2025-06-05 06:53] LABS: ALANINE AMINOTRANSFERASE,ALT 28.0 U/L (14-59); ASPARTATE AMNIOTRANSFERASE,AST 19.0 U/L (15-37); BILIRUBIN TOTAL 0.4 mg/dL (0.2-1.0); BLOOD UREA NITROGEN,BUN 22.0 mg/dL (7-18); CARBON DIOXIDE,CO2 28.0 mmol/L (21-32); CHLORIDE,CL 103.0 mmol/L (98-107); CREATININE 0.69 mg/dL (0.55-1.02); EST CRCL DRUG DOSING (CG) 50.57 mL/min; GLUCOSE RANDOM 128.0 mg/dL (70-99); POTASSIUM,K 3.9 mmol/L (3.5-5.1); PROTEIN TOTAL,TP 5.6 g/dL (6.4-8.2); SODIUM,NA 140.0 mmol/L (136-145)
[2025-06-05 06:58] LABS: A/G RATIO 1.07; ESTIMATED GFR 87.0 mL/min (>=60)
[2025-06-05] MEDS: UMECLIDIN INH SCH (08:16)
[2025-06-05] MEDS: VILANTER INH SCH (08:16)
[2025-06-05] MEDS: FLUTICASONE INH SCH (08:16)
[2025-06-05] MEDS: Albuterol 6.7 GM Inhaler**OWN MED INH PRN (13:15)
[2025-06-05] MEDS: OLMESARTAN 20 MG PO SCH (21:16)
[2025-06-06 06:40] LABS: BASOPHILS PERCENT AUTO 0.2 % (0.0-1.0); EOSINOPHILS PERCENT AUTO 0.0 % (1.0-3.0); LYMPHOCYTES PERCENT AUTO 7.2 % (20.5-50.1); MONOCYTES PERCENT AUTO 8.8 % (2-8); NEUTROPHILS PERCENT AUTO 83.8 % (42.2-75.2); PLATELET COUNT,PLT 214 10^3/uL (150-450); RED BLOOD CELL COUNT 3.62 10^6/uL (4.2-5.4); WHITE BLOOD CELL COUNT,WBC 10.3 10^3/uL (5.0-10.0)
[2025-06-06 07:08] LABS: ALANINE AMINOTRANSFERASE,ALT 26.0 U/L (14-59); ASPARTATE AMNIOTRANSFERASE,AST 17.0 U/L (15-37); BILIRUBIN TOTAL 0.5 mg/dL (0.2-1.0); BLOOD UREA NITROGEN,BUN 17.0 mg/dL (7-18); CARBON DIOXIDE,CO2 28.0 mmol/L (21-32); CHLORIDE,CL 107.0 mmol/L (98-107); CREATININE 0.65 mg/dL (0.55-1.02); EST CRCL DRUG DOSING (CG) 53.69 mL/min; GLUCOSE RANDOM 102.0 mg/dL (70-99); POTASSIUM,K 3.9 mmol/L (3.5-5.1); PROTEIN TOTAL,TP 5.9 g/dL (6.4-8.2); SODIUM,NA 143.0 mmol/L (136-145)
[2025-06-06 07:11] LABS: A/G RATIO 1.03; ESTIMATED GFR 88.0 mL/min (>=60)
[2025-06-06] MEDS: FLU (Fluad Triv) 25-26 (65UP)/MF59C/PF 45 MCG/0.5 ML Syringe IM ONE (09:21)
[2025-06-06 09:27] VITALS: BP 163/78; PULSE 65
== END 2025-06-06 11:20 | disposition home or self-care (01) | DRG 193 ==
LOC: DL.ED 19:27 → DL.MS 21:10
PROVIDERS: ADMIT Internal Medicine; ATTEND Internal Medicine
DX: A41.9 Sepsis, unspecified organism (principal); J18.9 Pneumonia, unspecified organism; J44.9 Chronic obstructive pulmonary disease, unspecified; J96.21 Acute and chronic respiratory failure with hypoxia; J44.0 Chronic obstructive pulmonary disease with (acute) lower respiratory infection; I13.0 Hypertensive heart and chronic kidney disease with heart failure and stage 1 through stage 4 chronic kidney disease, or unspecified chronic kidney disease; J44.1 Chronic obstructive pulmonary disease with (acute) exacerbation; I50.9 Heart failure, unspecified; H40.9 Unspecified glaucoma; F17.200 Nicotine dependence, unspecified, uncomplicated; N18.9 Chronic kidney disease, unspecified; H54.7 Unspecified visual loss; E78.00 Pure hypercholesterolemia, unspecified; K59.00 Constipation, unspecified; J20.9 Acute bronchitis, unspecified; K44.9 Diaphragmatic hernia without obstruction or gangrene; D72.829 Elevated white blood cell count, unspecified; R73.9 Hyperglycemia, unspecified; N18.30 Chronic kidney disease, stage 3 unspecified; K21.9 Gastro-esophageal reflux disease without esophagitis; M19.90 Unspecified osteoarthritis, unspecified site; M54.9 Dorsalgia, unspecified; G89.29 Other chronic pain; G43.909 Migraine, unspecified, not intractable, without status migrainosus; F32.A Depression, unspecified; E66.9 Obesity, unspecified; Z68.30 Body mass index [BMI] 30.0-30.9, adult; Z90.49 Acquired absence of other specified parts of digestive tract; Z87.891 Personal history of nicotine dependence; Z88.8 Allergy status to other drugs, medicaments and biological substances; Z88.1 Allergy status to other antibiotic agents; Z79.899 Other long term (current) drug therapy; Z79.52 Long term (current) use of systemic steroids; Z98.49 Cataract extraction status, unspecified eye; Z98.890 Other specified postprocedural states; Z99.81 Dependence on supplemental oxygen
CPT/HCPCS: 36415; 71045; 80053; 80202; 83605; 83735; 83880; 85025; 86140; 87040; 87637; 90653; 96365; 96375; 97161-GP; 97165-GO; 97530-GO; 99223; 99232; 99238; 99285; 99285-25; A9270-GY; J0295; J1100; J1650; J1885; J2543; J3373; J3374; J7030; J7040; J7050; J8540

== ENCOUNTER 2025-07-06 17:42 | Emergency (ER) | payer MEDICARE, BC ==
[2025-07-06 18:16] LABS: PLATELET COUNT,PLT 304 10^3/uL (150-450); RED BLOOD CELL COUNT 4.35 10^6/uL (4.2-5.4); WHITE BLOOD CELL COUNT,WBC 19.2 10^3/uL (5.0-10.0)
[2025-07-06 18:18] LABS: BASOPHILS PERCENT AUTO 0.3 % (0.0-1.0); EOSINOPHILS PERCENT AUTO 0.5 % (1.0-3.0); LYMPHOCYTES PERCENT AUTO 4.2 % (20.5-50.1); MONOCYTES PERCENT AUTO 8.5 % (2-8); NEUTROPHILS PERCENT AUTO 86.5 % (42.2-75.2)
[2025-07-06 18:26] LABS: BAND PERCENT MAN 3 %; LYMPHOCYTES PERCENT MAN 2 % (20-50); MONOCYTES PERCENT MAN 4 % (2-8); SEG NEUTROPHILS PERCENT MAN 91 % (42-75)
[2025-07-06 18:28] LABS: INR 1.0 (0.9-1.2); PTT,PARTIAL THROMBOPLSTIN TIME 23.0 SEC (22.0-34.0)
[2025-07-06 18:32] LABS: A/G RATIO 1.1; ALANINE AMINOTRANSFERASE,ALT 17 U/L (14-59); ASPARTATE AMNIOTRANSFERASE,AST 16 U/L (15-37); BILIRUBIN TOTAL 0.6 mg/dL (0.2-1.0); BLOOD UREA NITROGEN,BUN 14 mg/dL (7-18); CARBON DIOXIDE,CO2 28 mmol/L (21-32); CREATININE 1.19 mg/dL (0.55-1.02); GLUCOSE RANDOM 126 mg/dL (70-99); LACTIC ACID 1.8 mmol/L (0.4-2.0); POTASSIUM,K 4.0 mmol/L (3.5-5.1); PROTEIN TOTAL,TP 7.0 g/dL (6.4-8.2)
[2025-07-06 18:35] LABS: CHLORIDE,CL 98 mmol/L (98-107); SODIUM,NA 134 mmol/L (136-145)
[2025-07-06 18:36] VITALS: BP 108/88; PULSE 90
[2025-07-06 18:36] LABS: ESTIMATED GFR 46 mL/min (>=60)
[2025-07-06 19:39] LABS: APPEARANCE,URINE CLEAR (CLEAR); GLUCOSE,URINE NEGATIVE (NEGATIVE); OCCULT BLOOD,URINE MODERATE (NEGATIVE)
[2025-07-06 19:48] LABS: SQUAMOUS EPITHELIAL CELLS,UR FEW /HPF (NOT SEEN)
[2025-07-06] MEDS: Take Home: Ondansetron 4 MG Tab.DIS, 5 Tab Pack PO ONE (20:07)
== END 2025-07-06 20:21 | disposition home or self-care (01) ==
LOC: DL.ED 17:42
DX: K52.9 Noninfective gastroenteritis and colitis, unspecified (principal); I12.9 Hypertensive chronic kidney disease with stage 1 through stage 4 chronic kidney disease, or unspecified chronic kidney disease; N18.9 Chronic kidney disease, unspecified; J44.9 Chronic obstructive pulmonary disease, unspecified; E78.00 Pure hypercholesterolemia, unspecified; Z88.1 Allergy status to other antibiotic agents; Z88.5 Allergy status to narcotic agent; Z79.899 Other long term (current) drug therapy; Z88.8 Allergy status to other drugs, medicaments and biological substances
CPT/HCPCS: 36415; 71045; 80053; 81001; 83605; 83690; 83735; 84484; 85025; 85610; 85730; 86140; 87040; 93005; 99284; Q0162